=== PATIENT | female | born 1945 ===

== ENCOUNTER 2022-10-01 04:25 | Day surgery (SDC) | payer OTHER ==
[2022-09-27 09:12] VITALS: BMI 29.1
[2022-10-01] MEDS ORDERED: SIMETHICONE 40 MG/0.6 ML BOTTLE ONE (08:42)
[2022-10-01 09:03] VITALS: RESP 18; TEMP 97
[2022-10-01 09:41] VITALS: BP 136/57; PULSE 64
== END 2022-10-01 09:53 | disposition home or self-care (01) ==
LOC: JASU-ENDO 04:25
PROVIDERS: ATTEND Student in an Organized Health Care Education/Training Program
PROC: 0DBH8ZX Excision of Cecum, Via Natural or Artificial Opening Endoscopic, Diagnostic (ICD-10-PCS; principal; 2022-10-01 08:00)
DX: Z12.11 Encounter for screening for malignant neoplasm of colon (principal); D12.0 Benign neoplasm of cecum; K64.8 Other hemorrhoids
CPT/HCPCS: 82962; 88305-TC